=== PATIENT | female | born 1970 | race Caucasian/White ===

== ENCOUNTER 2016-08-30 12:36 | Emergency (ER) | payer MEDICARE ==
[2016-08-30] MEDS ORDERED: TDaP 0.5 ML VIAL IM.VACC ONE (13:55)
[2016-08-30] MEDS ORDERED: LIDOCAINE 2% 20 ML ONE (14:22)
== END 2016-08-30 15:18 | disposition home or self-care (01) ==
LOC: ER 12:36
DX: S61.011A Laceration without foreign body of right thumb without damage to nail, initial encounter (principal); W25.XXXA Contact with sharp glass, initial encounter; Y93.G1 Activity, food preparation and clean up; Y92.009 Unspecified place in unspecified non-institutional (private) residence as the place of occurrence of the external cause; Z23 Encounter for immunization; F17.200 Nicotine dependence, unspecified, uncomplicated; M79.7 Fibromyalgia
CPT/HCPCS: 90471